=== PATIENT | male | born 1990 | race Caucasian/White ===

== ENCOUNTER 2016-12-14 18:00 | Emergency (ER) | payer BC, OTHER ==
--- NOTE | 2016-12-14 19:22 | EDM.PDOC ---
ED HPI GENERAL MEDICAL PROBLEM - General Chief Complaint: General Stated Complaint: FACE SWELLING Time Seen by Provider: 12/14/16 19:14 - History of Present Illness INITIAL COMMENTS - FREE TEXT/NARRATIVE: HISTORY AND PHYSICAL: History of present illness: Patient 26-year-old white male presents with concern of dental pain and right jaw swelling he's been on amoxicillin x6 days he is going to followup on Thursday he did see the dentist originally put on the amoxicillin had no fever chills nausea vomiting or other complaints. He states he has been compliant with his medications he denies any allergies Review of systems: As per history of present illness and below otherwise all systems reviewed and negative. Past medical history: As per history of present illness and as reviewed below otherwise noncontributory. Surgical history: As per history of present illness and as reviewed below otherwise noncontributory. Social history: No reported history of drug or alcohol abuse. Family history: As per history of present illness and as reviewed below otherwise noncontributory. Physical exam: HEENT: Atraumatic, normocephalic, pupils reactive, negative for conjunctival pallor or scleral icterus, mucous membranes moist, throat clear, neck supple, nontender, trachea midline. Right mandibular swelling patient does have multiple dental caries and does have gingival edema in the region of the right lower molars. Lungs: Clear to auscultation, breath sounds equal bilaterally, chest nontender. Heart: S1S2, regular, negative for clicks, rubs, or JVD. Abdomen: Soft, nondistended, nontender. Negative for masses or hepatosplenomegaly. Negative for costovertebral tenderness. Pelvis: Stable nontender. Genitourinary: Deferred. Rectal: Deferred. Extremities: Atraumatic, negative for cords or calf pain. Neurovascular unremarkable. Neuro: Awake, alert, oriented. Cranial nerves II through XII unremarkable. Cerebellum unremarkable. Motor and sensory unremarkable throughout. Exam nonfocal. Diagnostics: None Therapeutics: None Impression: #1 dentalgia #2 dental abscess Definitive disposition and diagnosis as appropriate pending reevaluation and review of above. Tooth/Teeth Pain Score (Numeric/FACES): 4 - Related Data Allergies Allergy/AdvReac Type Severity Reaction Status Date / Time No Known Allergies Allergy Verified 12/14/16 18:22 Home Meds: Home Meds Amoxicillin 500 mg PO TID 12/14/16 [History] Hydrocodone/Acetaminophen [Hydrocodon-Acetaminophen 5-325] 1 tab PO TID PRN [History] Past Medical History - Past Health History Medical/Surgical History: Denies Medical/Surgical History HEENT History: Reports: None Cardiovascular History: Reports: None Respiratory History: Reports: None Gastrointestinal History: Reports: None Genitourinary History: Reports: None Musculoskeletal History: Reports: Other (see below) Other Musculoskeletal History: multiple broken bones Neurological History: Reports: None Psychiatric History: Reports: None Endocrine/Metabolic History: Reports: None Hematologic History: Reports: None Immunologic History: Reports: None Oncologic (Cancer) History: Reports: None Dermatologic History: Reports: None - Infectious Disease History Infectious Disease History: Reports: Chicken pox - Past Surgical History Head Surgeries/Procedures: Reports: None HEENT Surgical History: Reports: Tonsillectomy Social & Family History - Family History Family Medical History: Noncontributory Cardiac: Reports: Aneurysm - Tobacco Use Smoking Status *Q: Current Every Day Smoker Years of Tobacco use: 12 Packs/Tins Daily: 1.5 Used Tobacco, but Quit: No - Caffeine Use Caffeine Use: Reports: Energy drinks Caffeine Use Comment: 2/day - Recreational Drug Use Recreational Drug Use: No - Living Situation & Occupation Living situation: Reports: (3 children) Occupation: employed ED ROS GENERAL - Review of Systems Review Of Systems: ROS reveals no pertinent complaints other than HPI. ED EXAM, GENERAL - Physical Exam Exam: See Below (The dictation) Course - Vital Signs Last Recorded V/S: Last Vital Signs Temp Pulse 106 H 12/14/16 18:23 Resp 16 12/14/16 18:23 BP 122/64 12/14/16 18:23 Pulse Ox 95 12/14/16 18:23 Departure - Departure Time of Disposition: 19:20 Disposition: Home, Self-Care 01 Condition: good Clinical Impression: Dentalgia, Dental abscess Forms: ED Department Discharge Additional Instructions: The following information is given to patients seen in the emergency department who are being discharged to home. This information is to outline your options for follow-up care. We provide all patients seen in our emergency department with a follow-up referral. The need for follow-up, as well as the timing and circumstances, are variable depending upon the specifics of your emergency department visit. If you don't have a primary care physician on staff, we will provide you with a referral. We always advise you to contact your personal physician following an emergency department visit to inform them of the circumstance of the visit and for follow-up with them and/or the need for any referrals to a consulting specialist. The emergency department will also refer you to a specialist when appropriate. This referral assures that you have the opportunity for followup care with a specialist. All of these measure are taken in an effort to provide you with optimal care, which includes your followup. Under all circumstances we always encourage you to contact your private physician who remains a resource for coordinating your care. When calling for followup care, please make the office aware that this follow-up is from your recent emergency room visit. If for any reason you are refused follow-up, please contact the [facility] emergency department at and asked to speak to the emergency department charge nurse. Clindamycin as prescribed continue hydrocodone and amoxicillin as prescribed followup dentist as scheduled return as needed as discussed
[2016-12-14 19:51] VITALS: BP 135/64
== END 2016-12-14 19:50 | disposition home or self-care (01) ==
LOC: MW.ED 18:00
DX: K04.7 Periapical abscess without sinus (principal); F17.210 Nicotine dependence, cigarettes, uncomplicated; Z98.890 Other specified postprocedural states
CPT/HCPCS: 99282; 99283

== ENCOUNTER 2017-01-09 17:01 | Emergency (ER) | payer OTHER ==
--- NOTE | 2017-01-09 17:41 | EDM.PDOC ---
ED HPI GENERAL MEDICAL PROBLEM - General Chief Complaint: General Stated Complaint: NECK Time Seen by Provider: 01/09/17 17:28 - History of Present Illness INITIAL COMMENTS - FREE TEXT/NARRATIVE: HISTORY AND PHYSICAL: History of present illness: Patient is a 26-year-old male she concern of sore throat right lower back pain generalized weakness and tactile fever and chills over last several days he had no vomiting no diarrhea no urinary symptoms no cough or other complaints. Review of systems: As per history of present illness and below otherwise all systems reviewed and negative. Past medical history: As per history of present illness and as reviewed below otherwise noncontributory. Surgical history: As per history of present illness and as reviewed below otherwise noncontributory. Social history: No reported history of drug or alcohol abuse. Family history: As per history of present illness and as reviewed below otherwise noncontributory. Physical exam: HEENT: Atraumatic, normocephalic, pupils reactive, negative for conjunctival pallor or scleral icterus, mucous membranes dry, throat injected, neck supple, nontender, trachea midline. Lungs: Clear to auscultation, breath sounds equal bilaterally, chest nontender. Heart: S1S2, regular, negative for clicks, rubs, or JVD. Abdomen: Soft, nondistended, nontender. Negative for masses or hepatosplenomegaly. Negative for costovertebral tenderness. Pelvis: Stable nontender. Genitourinary: Deferred. Rectal: Deferred. Extremities: Atraumatic, negative for cords or calf pain. Neurovascular unremarkable. Neuro: Awake, alert, oriented. Cranial nerves II through XII unremarkable. Cerebellum unremarkable. Motor and sensory unremarkable throughout. Exam nonfocal. Diagnostics: CBC CMP UA rapid strep chest x-ray Therapeutics: Normal saline 1 L bolus Impression: #1 pharyngitis #2 dehydration #3 low back pain Definitive disposition and diagnosis as appropriate pending reevaluation and review of above. Oral/Mouth Pain Score (Numeric/FACES): 4 - Related Data Allergies Allergy/AdvReac Type Severity Reaction Status Date / Time No Known Allergies Allergy Verified 01/09/17 17:05 Past Medical History - Past Health History Medical/Surgical History: Denies Medical/Surgical History HEENT History: Reports: None Cardiovascular History: Reports: None Respiratory History: Reports: None Gastrointestinal History: Reports: None Genitourinary History: Reports: None Musculoskeletal History: Reports: Other (See Below) Other Musculoskeletal History: multiple broken bones Neurological History: Reports: None Psychiatric History: Reports: None Endocrine/Metabolic History: Reports: None Hematologic History: Reports: None Immunologic History: Reports: None Oncologic (Cancer) History: Reports: None Dermatologic History: Reports: None - Infectious Disease History Infectious Disease History: Reports: Chicken Pox - Past Surgical History Head Surgeries/Procedures: Reports: None HEENT Surgical History: Reports: Tonsillectomy Social & Family History - Family History Family Medical History: Noncontributory Cardiac: Reports: Aneurysm - Tobacco Use Smoking Status *Q: Current Every Day Smoker Years of Tobacco use: 18 Packs/Tins Daily: 1 Used Tobacco, but Quit: No - Caffeine Use Caffeine Use: Reports: Coffee Caffeine Use Comment: 2/day - Recreational Drug Use Recreational Drug Use: No - Living Situation & Occupation Living situation: Reports: Occupation: Employed ED ROS GENERAL - Review of Systems Review Of Systems: ROS reveals no pertinent complaints other than HPI. ED EXAM, GENERAL - Physical Exam Exam: See Below (See dictation) Course - Vital Signs Last Recorded V/S: Last Vital Signs Temp 37.2 C 01/09/17 17:06 Pulse 112 H 01/09/17 17:06 Resp 16 01/09/17 17:06 BP 119/67 01/09/17 17:06 Pulse Ox - Orders/Labs/Meds Orders: Active Orders 24 hr Category Date Time Status Chest 2V [CR] Stat Exams 01/09/17 17:42 Taken CULTURE STREP A CONFIRMATION [RM] Stat Lab 01/09/17 17:50 Results STREP SCRN A RAPID W CULT CONF [RM] Stat Lab 01/09/17 17:50 Results Labs: Laboratory Tests 01/09/17 01/09/17 01/09/17 Range/Units 17:45 17:48 17:48 WBC 15.18 H (4.0-11.0) K/uL RBC 4.39 L (4.50-5.90) M/uL Hgb 13.8 (13.0-17.0) g/dL Hct 39.7 (38.0-50.0) % MCV 90.4 (80.0-98.0) fL MCH 31.4 (27.0-32.0) pg MCHC 34.8 (31.0-37.0) g/dL RDW Std Deviation 46.2 (28.0-62.0) fl RDW Coeff of Mirna 14 (11.0-15.0) % Plt Count 265 (150-400) K/uL MPV 9.50 (7.40-12.00) fL Add Manual Diff YES Neutrophils % (Manual) 54 (48.0-80.0) % Band Neutrophils % 10 % Lymphocytes % (Manual) 26 (16.0-40.0) % Monocytes % (Manual) 10 (0.0-15.0) % Nucleated RBC % 0.0 /100WBC Absolute Seg Neuts 8.2 Band Neutrophils # 1.5 Lymphocytes # (Manual) 3.9 Monocytes # (Manual) 1.5 Nucleated RBCs # 0 K/uL Reactive Lymphocytes FEW Sodium 137 (136-146) mmol/L Potassium 4.3 (3.5-5.1) mmol/L Chloride 102 (98-110) mmol/L Carbon Dioxide 23 (21-31) mmol/L BUN 8 (6.0-23.0) mg/dL Creatinine 1.0 (0.6-1.5) mg/dL Est Cr Clr Drug Dosing 98.78 mL/min Estimated GFR (MDRD) > 60.0 ml/min Glucose 94 (60-110) mg/dL Calcium 9.9 (8.8-10.8) mg/dL Total Bilirubin 0.7 (0.1-1.5) mg/dL AST 15 (5-40) IU/L ALT 14 (8-54) IU/L Alkaline Phosphatase 44 (40-150) Total Protein 8.1 H (6.0-8.0) g/dL Albumin 4.6 (3.5-5.0) g/dL Globulin 3.5 (2.0-3.5) g/dL Albumin/Globulin Ratio 1.3 (1.3-2.8) Urine Color YELLOW Urine Appearance CLEAR Urine pH 6.0 (5.0-8.0) Ur Specific Lillian 1.020 (1.001-1.035) Urine Protein TRACE (NEGATIVE) mg/dL Urine Glucose (UA) NEGATIVE (NEGATIVE) mg/dL Urine Ketones 15 H (NEGATIVE) mg/dL Urine Occult Blood NEGATIVE (NEGATIVE) Urine Nitrite NEGATIVE (NEGATIVE) Urine Bilirubin MODERATE H (NEGATIVE) Urine Ictotest NEGATIVE Urine Urobilinogen 1.0 (<2.0) EU/dL Ur Leukocyte Esterase NEGATIVE (NEGATIVE) Urine RBC 1-2 (0-2/HPF) Urine WBC 2-7 (0-5/HPF) Ur Epithelial Cells OCCASIONAL (NONE-FEW) Urine Bacteria FEW (NEGATIVE) Urine Mucus MODERATE (NONE-MOD) Meds: Medications Discontinued Medications Generic Name Dose Route Start Last Admin Trade Name Sara PRN Reason Stop Dose Admin Sodium Chloride 1,000 mls @ 999 mls/hr 01/09/17 17:42 01/09/17 17:55 Normal Saline IV 01/09/17 18:42 999 mls/hr STAT ONE Administration Departure - Departure Time of Disposition: 18:51 Disposition: Home, Self-Care 01 Condition: good Clinical Impression: Dehydration, Encounter for medical screening examination - Discharge Information Referrals: PCP,None [Primary Care Provider] - Forms: ED Department Discharge Additional Instructions: The following information is given to patients seen in the emergency department who are being discharged to home. This information is to outline your options for follow-up care. We provide all patients seen in our emergency department with a follow-up referral. The need for follow-up, as well as the timing and circumstances, are variable depending upon the specifics of your emergency department visit. If you don't have a primary care physician on staff, we will provide you with a referral. We always advise you to contact your personal physician following an emergency department visit to inform them of the circumstance of the visit and for follow-up with them and/or the need for any referrals to a consulting specialist. The emergency department will also refer you to a specialist when appropriate. This referral assures that you have the opportunity for followup care with a specialist. All of these measure are taken in an effort to provide you with optimal care, which includes your followup. Under all circumstances we always encourage you to contact your private physician who remains a resource for coordinating your care. When calling for followup care, please make the office aware that this follow-up is from your recent emergency room visit. If for any reason you are refused follow-up, please contact the [facility] emergency department at and asked to speak to the emergency department charge nurse. Motrin/Tylenol as directed push fluids follow up primary medical doctor one to 2 days return as needed as discussed - My Orders Last 24 Hours: My Active Orders 01/09/17 17:42 Chest 2V [CR] Stat 01/09/17 17:50 CULTURE STREP A CONFIRMATION [RM] Stat STREP SCRN A RAPID W CULT CONF [RM] Stat - Assessment/Plan Last 24 Hours: My Active Orders 01/09/17 17:42 Chest 2V [CR] Stat 01/09/17 17:50 CULTURE STREP A CONFIRMATION [RM] Stat STREP SCRN A RAPID W CULT CONF [RM] Stat
[2017-01-09] MEDS ORDERED: Sodium Chloride 0.9% 1,000 ML IV ONE (17:42)
[2017-01-09 18:24] LABS: CHLORIDE,CL 102 mmol/L (98-110); SODIUM,NA 137 mmol/L (136-146)
[2017-01-09] MEDS ORDERED: cefTRIAXone 1 GM in Premix Bag 1 BAG IV ONE (19:00)
[2017-01-10 02:29] VITALS: BP 96/55
--- NOTE | 2017-01-13 10:10 | CR ---
EXAM DATE: 01/09/17 PATIENT'S AGE: 26 Patient: PRAVEEN LARA Facility: [place], [place] Site . Site : 1990 Study: XRay Chest [id number] 6:35:54 PM Ordering Physician: Smooth Ku Final Report: INDICATION: Fever TECHNIQUE: Chest 2 views. COMPARISON: None available FINDINGS: Cardiovascular and mediastinum: Heart size and vasculature are normal in caliber and appearance. Mediastinum is within normal limits. Lungs and pleural spaces: No consolidation or pleural effusions. An apparent small nodular opacity in the left upper lung projecting over the anterior 2nd rib which could represent a small granuloma. Bones and soft tissues: A mild chronic deformity of the distal right clavicle. IMPRESSION: No sign of acute disease. An apparent small left upper lobe nodular opacity could represent a small granuloma. Recommend followup. Dictated by Damion Almanza MD @ 01/09/2017 7:20:06 PM Dictated by: Damion Almanza MD @ 01/09/2017 19:20:09 (Electronic Signature) Report Signed by Proxy. [facility] CENTERMalini
== END 2017-01-09 19:46 | disposition home or self-care (01) ==
LOC: MW.ED 17:01
DX: J02.9 Acute pharyngitis, unspecified (principal); E86.0 Dehydration; M54.5 Low back pain; Z13.9 Encounter for screening, unspecified; F17.210 Nicotine dependence, cigarettes, uncomplicated; Z90.89 Acquired absence of other organs
CPT/HCPCS: 71020; 80053; 81001; 85025; 87081; 87880; 96361; 96365; 99283; J0696; J7040; 99284

== ENCOUNTER 2019-06-08 13:32 | Emergency (ER) | payer OTHER ==
--- NOTE | 2019-06-08 13:56 | EDM.PDOC ---
ED HPI GENERAL MEDICAL PROBLEM - General Chief Complaint: Respiratory Problem Stated Complaint: UNKNOWN Time Seen by Provider: 06/08/19 13:56 Source of Information: Reports: Patient History Limitations: Reports: No Limitations - History of Present Illness INITIAL COMMENTS - FREE TEXT/NARRATIVE: HISTORY AND PHYSICAL: History of present illness: Patient is a 29-year-old male presents to the ED With complaint of cough and congestion x 3 days. He states he has had sinus and nasal congestion, headache, and cough. Denies fevers,chills, nausea ,vomiting, abdominal pain. Denies significant past medical history. Smokes 2 ppd x 15 years. Review of systems: As per history of present illness and below otherwise all systems reviewed and negative. Past medical history: As per history of present illness and as reviewed below otherwise noncontributory. Surgical history: As per history of present illness and as reviewed below otherwise noncontributory. Social history: No reported history of drug or alcohol abuse. Family history: As per history of present illness and as reviewed below otherwise noncontributory. Physical exam: General: Patient sitting comfortably in no acute distress and nontoxic appearing HEENT: Atraumatic, normocephalic, pupils reactive, negative for conjunctival pallor or scleral icterus, mucous membranes moist, throat clear, neck supple, nontender, trachea midline. No meningeal signs. Lungs: Clear to auscultation, breath sounds equal bilaterally, chest nontender. Heart: S1S2, regular, negative for clicks, rubs, or overt murmur. Abdomen: Soft, nondistended, nontender. Negative for masses or hepatosplenomegaly. Negative for costovertebral tenderness. No rigidity, rebound , guarding. Pelvis: Stable nontender. Genitourinary: Deferred. Rectal: Deferred. Extremities: Atraumatic, negative for cords or calf pain. Neurovascular unremarkable. Neuro: Awake, alert, oriented. Cranial nerves II through XII unremarkable. Cerebellum unremarkable. Motor and sensory unremarkable throughout. Exam nonfocal. Notes: Diagnostics: Influenza, CXR Therapeutics: [] Prescriptions: Azithromycin Chest x-ray Impression: Acute bronchitis Plan: Take antibiotic and inhaler as instructed Follow up with primary care provider Return to ED as needed as discussed Definitive disposition and diagnosis as appropriate pending reevaluation and review of above. right ear Pain Score (Numeric/FACES): 2 - Related Data Allergies Allergy/AdvReac Type Severity Reaction Status Date / Time No Known Allergies Allergy Verified 06/08/19 13:48 Home Meds: Home Meds Albuterol [Ventolin HFA] 1 puff INH Q4H #1 inhaler 06/08/19 [Rx] Azithromycin [Zithromax] 250 mg PO ASDIRECTED #1 dosepk 06/08/19 [Rx] Past Medical History - Past Health History Medical/Surgical History: Denies Medical/Surgical History HEENT History: Reports: None Cardiovascular History: Reports: None Respiratory History: Reports: None Gastrointestinal History: Reports: None Genitourinary History: Reports: None Musculoskeletal History: Reports: Other (See Below) Other Musculoskeletal History: multiple broken bones Neurological History: Reports: None Psychiatric History: Reports: None Endocrine/Metabolic History: Reports: None Hematologic History: Reports: None Immunologic History: Reports: None Oncologic (Cancer) History: Reports: None Dermatologic History: Reports: None - Infectious Disease History Infectious Disease History: Reports: Chicken Pox - Past Surgical History Head Surgeries/Procedures: Reports: None HEENT Surgical History: Reports: Tonsillectomy Social & Family History - Family History Family Medical History: Noncontributory Cardiac: Reports: Aneurysm - Tobacco Use Smoking Status *Q: Current Every Day Smoker Years of Tobacco use: 16 Packs/Tins Daily: 2 - Caffeine Use Caffeine Use: Reports: Coffee Caffeine Use Comment: 2/day - Recreational Drug Use Recreational Drug Use: No - Living Situation & Occupation Living situation: Reports: Occupation: Employed ED ROS GENERAL - Review of Systems Review Of Systems: ROS reveals no pertinent complaints other than HPI. ED EXAM, GENERAL - Physical Exam Exam: See Below (see dictation) Course - Vital Signs Last Recorded V/S: Last Vital Signs Temp 97.5 F 06/08/19 13:48 Pulse 97 06/08/19 15:11 Resp 18 06/08/19 15:11 BP 122/78 06/08/19 15:11 Pulse Ox 98 06/08/19 15:11 Departure - Departure Time of Disposition: 14:51 Disposition: Home, Self-Care 01 Condition: Good Clinical Impression: Acute bronchitis - Discharge Information Prescriptions: Albuterol [Ventolin HFA] 1 puff INH Q4H #1 inhaler Azithromycin [Zithromax] 250 mg PO ASDIRECTED #1 dosepk Instructions: Acute Bronchitis, Adult, [id number] Referrals: PCP,None [Primary Care Provider] - Forms: ED Department Discharge Additional Instructions: The following information is given to patients seen in the emergency department who are being discharged to home. This information is to outline your options for follow-up care. We provide all patients seen in our emergency department with a follow-up referral. The need for follow-up, as well as the timing and circumstances, are variable depending upon the specifics of your emergency department visit. If you don't have a primary care physician on staff, we will provide you with a referral. We always advise you to contact your personal physician following an emergency department visit to inform them of the circumstance of the visit and for follow-up with them and/or the need for any referrals to a consulting specialist. The emergency department will also refer you to a specialist when appropriate. This referral assures that you have the opportunity for follow-up care with a specialist. All of these measure are taken in an effort to provide you with optimal care, which includes your follow-up. Under all circumstances we always encourage you to contact your private physician who remains a resource for coordinating your care. When calling for follow-up care, please make the office aware that this follow-up is from your recent emergency room visit. If for any reason you are refused follow-up, please contact the [facility] Emergency Department at and asked to speak to the emergency department charge nurse. [facility] [address] [place] [id number] [facility] [address] [place] [id number] Take antibiotic and inhaler as instructed Follow up with primary care provider Return to ED as needed as discussed
[2019-06-08 15:11] VITALS: BP 122/78; PULSE 97
--- NOTE | 2019-06-08 15:21 | CR ---
Indication: Chest pain, shortness of breath Technique: Chest 1 view. Comparison: January 09, 2017 Findings: Cardiovascular and mediastinum: Heart size and vasculature are normal in caliber and appearance. Mediastinum is within normal limits. Lungs and pleural space: Lungs are clear. No sign of infiltrate or mass. No sign of pleural effusion. No pneumothorax. Bones and soft tissues: No significant findings. Impression: No sign of acute disease. Dictated by Mariela Darling MD @ Jun 08 2019 3:17PM Signed by Dr. Mariela Darling @ Jun 08 2019 3:18PM
== END 2019-06-08 15:09 | disposition home or self-care (01) ==
LOC: MW.ED 13:32
DX: J20.9 Acute bronchitis, unspecified (principal); F17.210 Nicotine dependence, cigarettes, uncomplicated
CPT/HCPCS: 71045; 71045-26; 87804; 99283-25

== ENCOUNTER 2019-06-30 13:08 | Emergency (ER) | payer OTHER ==
[2019-06-30] MEDS ORDERED: methylPREDNISolone Sodium Succinate 125 MG/2 ML SDV IM ONE (13:56)
[2019-06-30] MEDS ORDERED: Albuterol/Ipratropium 3.0-0.5 MG/3 ML Neb Soln NEB ONE (13:56)
[2019-06-30] MEDS ORDERED: methylPREDNISolone Sodium Succinate 125 MG/2 ML SDV IVPUSH ONE (14:28)
--- NOTE | 2019-06-30 14:54 | EDM.PDOC ---
ED HPI GENERAL MEDICAL PROBLEM - General Chief Complaint: Respiratory Problem Stated Complaint: COUGH, SOB Time Seen by Provider: 06/30/19 13:32 Source of Information: Reports: Patient History Limitations: Reports: No Limitations - History of Present Illness INITIAL COMMENTS - FREE TEXT/NARRATIVE: HISTORY AND PHYSICAL: History of present illness: Patient is a 29-year-old male who presents to the ED today with concern of cough and feeling short of breath over the last month and a half. Patient states he was seen here in the ED approximately a month and a half ago and was given antibiotics and an inhaler for bronchitis according the patient. Patient states he took the medication and did not have improvement of his symptoms. Patient states the symptoms have been ongoing since that visit and have not worsened but also had not gotten better. Patient states he used to smoke 2 packs of cigarettes a day for many years but since the onset of the symptoms has decreased to half a pack a day. Patient denies any health history or any other symptoms or concerns. Patient denies fever, chills, chest pain. Denies headache, neck stiff ness, change in vision, syncope, or near syncope. Denies nausea, vomiting, abdominal pain, diarrhea, constipation, or dysuria. Has not noted any blood in urine or stool. Patient has been eating and drinking appropriately. Review of systems: As per history of present illness and below otherwise all systems reviewed and negative. Past medical history: As per history of present illness and as reviewed below otherwise noncontributory. Surgical history: As per history of present illness and as reviewed below otherwise noncontributory. Social history: See social history for further information Family history: As per history of present illness and as reviewed below otherwise noncontributory. Physical exam: General: Patient is alert, oriented, and in no acute distress. Patient sitting comfortably on exam table. HEENT: Atraumatic, normocephalic, pupils equal and reactive bilaterally, negative for conjunctival pallor or scleral icterus, mucous membranes moist, TMs normal bilaterally, throat clear, neck supple, nontender, trachea midline. No drooling or trismus noted. No meningeal signs. No hot potato voice noted. Lungs: Clear to auscultation, breath sounds equal bilaterally, chest nontender. Heart: S1S2, regular rate and rhythm without overt murmur Abdomen: Soft, nondistended, nontender. Negative for masses or hepatosplenomegaly. Negative for costovertebral tenderness. Pelvis: Stable nontender. Genitourinary: Deferred. Rectal: Deferred. Skin: Intact, warm, dry. No lesions or rashes noted. Extremities: Atraumatic, negative for cords or calf pain. Neurovascular unremarkable. Neuro: Awake, alert, oriented. Cranial nerves II through XII unremarkable. Cerebellum unremarkable. Motor and sensory unremarkable throughout. Exam nonfocal. Notes: Discussed the importance for follow-up with a primary care provider. Voices understanding and is agreeable to plan of care. Denies any further questions or concerns at this time. Diagnostics: Influenza, strep, CBC, CMP, UA, EKG, chest x-ray Therapeutics: DuoNeb, Solu-Medrol Prescription: Medrol dose pack, proair inhaler Impression: Cough Dyspnea Plan: 1. Take medication as prescribed. You can alternate abdomen and Tylenol as directed for pain and discomfort. 2. Follow-up with your primary care provider as discussed. Return to the ED as needed and as discussed. Definitive disposition and diagnosis as appropriate pending reevaluation and review of above. bodyaches Pain Score (Numeric/FACES): 3 - Related Data Allergies Allergy/AdvReac Type Severity Reaction Status Date / Time No Known Allergies Allergy Verified 06/30/19 13:29 Home Meds: Home Meds Albuterol [Ventolin HFA] 1 puff INH Q4H #1 inhaler 06/08/19 [Rx] Past Medical History - Past Health History Medical/Surgical History: Denies Medical/Surgical History HEENT History: Reports: None Cardiovascular History: Reports: None Respiratory History: Reports: None Gastrointestinal History: Reports: None Genitourinary History: Reports: None Musculoskeletal History: Reports: Other (See Below) Other Musculoskeletal History: multiple broken bones Neurological History: Reports: None Psychiatric History: Reports: None Endocrine/Metabolic History: Reports: None Hematologic History: Reports: None Immunologic History: Reports: None Oncologic (Cancer) History: Reports: None Dermatologic History: Reports: None - Infectious Disease History Infectious Disease History: Reports: Chicken Pox - Past Surgical History Head Surgeries/Procedures: Reports: None HEENT Surgical History: Reports: Tonsillectomy Social & Family History - Family History Family Medical History: Noncontributory Cardiac: Reports: Aneurysm - Tobacco Use Smoking Status *Q: Current Every Day Smoker Years of Tobacco use: 18 Packs/Tins Daily: 2 - Caffeine Use Caffeine Use: Reports: Coffee Caffeine Use Comment: 2/day - Recreational Drug Use Recreational Drug Use: No - Living Situation & Occupation Living situation: Reports: Occupation: Employed ED ROS GENERAL - Review of Systems Review Of Systems: Comprehensive ROS is negative, except as noted in HPI. ED EXAM, GENERAL - Physical Exam Exam: See Below (See dictation) Course - Vital Signs Last Recorded V/S: Last Vital Signs Temp 97.7 F 06/30/19 15:17 Pulse 90 06/30/19 15:17 Resp 16 06/30/19 15:17 BP 108/70 06/30/19 15:17 Pulse Ox 98 06/30/19 15:17 - Orders/Labs/Meds Orders: Active Orders 24 hr Category Date Time Status EKG Documentation Completion [RC] STAT Care 06/30/19 13:55 Active RT Aerosol Therapy [RC] ASDIRECTED Care 06/30/19 13:56 Active CULTURE STREP A CONFIRMATION [] Stat Lab 06/30/19 14:47 Results STREP SCRN A RAPID W CULT CONF [RM] Stat Lab 06/30/19 14:47 Results Labs: Laboratory Tests 06/30/19 06/30/19 06/30/19 Range/Units 14:35 14:35 14:43 WBC 13.03 H (4.0-11.0) K/uL RBC 4.74 (4.50-5.90) M/uL Hgb 15.3 (13.0-17.0) g/dL Hct 44.1 (38.0-50.0) % MCV 93.0 (80.0-98.0) fL MCH 32.3 H (27.0-32.0) pg MCHC 34.7 (31.0-37.0) g/dL RDW Std Deviation 47.9 (28.0-62.0) fl RDW Coeff of Mirna 14 (11.0-15.0) % Plt Count 317 (150-400) K/uL MPV 9.90 (7.40-12.00) fL Neut % (Auto) 58.7 (48.0-80.0) % Lymph % (Auto) 29.9 (16.0-40.0) % [place] % (Auto) 9.7 (0.0-15.0) % Eos % (Auto) 1.5 (0.0-7.0) % Baso % (Auto) 0.2 (0.0-1.5) % Neut # (Auto) 7.7 H (1.4-5.7) K/uL Lymph # (Auto) 3.9 H (0.6-2.4) K/uL [place] # (Auto) 1.3 H (0.0-0.8) K/uL Eos # (Auto) 0.2 (0.0-0.7) K/uL Baso # (Auto) 0.0 (0.0-0.1) K/uL Nucleated RBC % 0.0 /100WBC Nucleated RBCs # 0 K/uL Sodium 139 (136-148) mmol/L Potassium 4.0 (3.5-5.1) mmol/L Chloride 104 (98-107) mmol/L Carbon Dioxide 26.8 (21.0-32.0) mmol/L BUN 9 (7.0-18.0) mg/dL Creatinine 1.0 (0.8-1.3) mg/dL Est Cr Clr Drug Dosing 109.87 mL/min Estimated GFR (MDRD) > 60.0 ml/min Glucose 89 (74-106) mg/dL Calcium 9.3 (8.5-10.1) mg/dL Total Bilirubin 0.6 (0.2-1.0) mg/dL AST 26 (15-37) IU/L ALT 37 (14-63) IU/L Alkaline Phosphatase 47 (46-116) U/L Total Protein 8.3 H (6.4-8.2) g/dL Albumin 4.4 (3.4-5.0) g/dL Globulin 3.9 (2.6-4.0) g/dL Albumin/Globulin Ratio 1.1 (0.9-1.6) Urine Color YELLOW Urine Appearance CLEAR Urine pH 7.0 (5.0-8.0) Ur Specific [place] 1.020 (1.001-1.035) Urine Protein NEGATIVE (NEGATIVE) mg/dL Urine Glucose (UA) NEGATIVE (NEGATIVE) mg/dL Urine Ketones NEGATIVE (NEGATIVE) mg/dL Urine Occult Blood NEGATIVE (NEGATIVE) Urine Nitrite NEGATIVE (NEGATIVE) Urine Bilirubin NEGATIVE (NEGATIVE) Urine Urobilinogen 0.2 (<2.0) EU/dL Ur Leukocyte Esterase NEGATIVE (NEGATIVE) Meds: Medications Discontinued Medications Generic Name Dose Route Start Last Admin Trade Name Sara PRN Reason Stop Dose Admin Albuterol/Ipratropium 3 ml 06/30/19 13:56 06/30/19 14:29 Duoneb 3.0-0.5 Mg/3 Ml NEB 06/30/19 13:57 3 ml ONETIME ONE Administration Methylprednisolone Sodium Succinate 125 mg 06/30/19 14:28 06/30/19 14:29 Solu-Medrol IVPUSH 06/30/19 14:29 125 mg ONETIME ONE Administration Departure - Departure Time of Disposition: 15:44 Disposition: Home, Self-Care 01 Clinical Impression: Cough Dyspnea Qualifiers: Dyspnea type: unspecified Qualified Code(s): R06.00 - Dyspnea, unspecified - Discharge Information Referrals: PCP,None [Primary Care Provider] - Forms: ED Department Discharge Additional Instructions: The following information is given to patients seen in the emergency department who are being discharged to home. This information is to outline your options for follow-up care. We provide all patients seen in our emergency department with a follow-up referral. The need for follow-up, as well as the timing and circumstances, are variable depending upon the specifics of your emergency department visit. If you don't have a primary care physician on staff, we will provide you with a referral. We always advise you to contact your personal physician following an emergency department visit to inform them of the circumstance of the visit and for follow-up with them and/or the need for any referrals to a consulting specialist. The emergency department will also refer you to a specialist when appropriate. This referral assures that you have the opportunity for follow-up care with a specialist. All of these measure are taken in an effort to provide you with optimal care, which includes your follow-up. Under all circumstances we always encourage you to contact your private physician who remains a resource for coordinating your care. When calling for follow-up care, please make the office aware that this follow-up is from your recent emergency room visit. If for any reason you are refused follow-up, please contact the [facility] Emergency Department at and asked to speak to the emergency department charge nurse. [facility] [address] [place] [address] [facility] [address] [place] [address] 1. Take medication as prescribed. You can alternate abdomen and Tylenol as directed for pain and discomfort. 2. Follow-up with your primary care provider as discussed. Return to the ED as needed and as discussed. - My Orders Last 24 Hours: My Active Orders 06/30/19 13:55 EKG Documentation Completion [RC] STAT 06/30/19 13:56 RT Aerosol Therapy [RC] ASDIRECTED 06/30/19 14:47 CULTURE STREP A CONFIRMATION [RM] Stat STREP SCRN A RAPID W CULT CONF [RM] Stat - Assessment/Plan Last 24 Hours: My Active Orders 06/30/19 13:55 EKG Documentation Completion [RC] STAT 06/30/19 13:56 RT Aerosol Therapy [RC] ASDIRECTED 06/30/19 14:47 CULTURE STREP A CONFIRMATION [RM] Stat STREP SCRN A RAPID W CULT CONF [RM] Stat
[2019-06-30 15:16] LABS: BLOOD UREA NITROGEN,BUN 9 mg/dL (7.0-18.0); CARBON DIOXIDE,CO2 26.8 mmol/L (21.0-32.0); CHLORIDE,CL 104 mmol/L (98-107); GLUCOSE RANDOM 89 mg/dL (74-106); SODIUM,NA 139 mmol/L (136-148)
--- NOTE | 2019-06-30 15:35 | CR ---
EXAM DATE: 06/30/19 PATIENT'S AGE: 29 Chest: Two views of the chest were obtained. Comparison: Prior chest x-ray of 06/08/19. Heart size and mediastinum are normal. Lungs are clear. Bony structures are unremarkable for the patient's age. Impression: 1. Nothing acute is seen on two view chest x-ray. 2. No appreciable change is seen from previous study. Diagnostic code #1 Report Signed by Proxy. JC
[2019-06-30 16:08] VITALS: BP 115/65; PULSE 69
== END 2019-06-30 16:08 | disposition home or self-care (01) ==
LOC: MW.ED 13:08
DX: R06.00 Dyspnea, unspecified (principal); F17.210 Nicotine dependence, cigarettes, uncomplicated
CPT/HCPCS: 36415; 71046; 80053; 81003; 85025; 87081; 87804; 87880; 93005; 94640; 96374; 99285; J2930; 99283; J7620-GY

== ENCOUNTER 2019-09-30 10:14 | Emergency (ER) | payer OTHER ==
[2019-09-30 11:12] LABS: BLOOD UREA NITROGEN,BUN 10 mg/dL (7.0-18.0); CARBON DIOXIDE,CO2 28.3 mmol/L (21.0-32.0); CHLORIDE,CL 103 mmol/L (98-107); GLUCOSE RANDOM 90 mg/dL (74-106); POTASSIUM,K 4.1 mmol/L (3.5-5.1); SODIUM,NA 139 mmol/L (136-148)
--- NOTE | 2019-09-30 11:25 | EDM.PDOC ---
ED HPI GENERAL MEDICAL PROBLEM - General Chief Complaint: Cardiovascular Problem Stated Complaint: CHEST PAIN Time Seen by Provider: 09/30/19 11:10 Source of Information: Reports: Patient, RN Notes Reviewed - History of Present Illness INITIAL COMMENTS - FREE TEXT/NARRATIVE: Patient states that around 9 AM today while seated in his truck, he felt nausea , dizziness, and palpitations. Symptoms were abrupt in onset. Symptoms lasted an hour and a half, then resolved on their own. He said the symptoms began with nausea and feeling lightheaded. He then felt some 1 or 2 out of 10 nonradiating pleuritic chest pain. Nothing made the symptoms better or worse. He states that he does not use drugs. No alcohol today. Says he drinks anywhere from once a month to once a week. He said he drank 3 or 4 beers yesterday. Did not have any alcohol today. Denied suicidal or homicidal ideation. Says he was not particularly anxious at that time. There was no nausea or vomiting. Again, he says his symptoms have resolved; he has no chest pain, palpitations, anxiety, or panic at the time that I am talking to him. Denies fam hx of AMI prior to age 50. - Related Data Allergies Allergy/AdvReac Type Severity Reaction Status Date / Time No Known Allergies Allergy Verified 06/30/19 13:29 Home Meds: Home Meds Melatonin 09/30/19 [History] Past Medical History - Past Health History Medical/Surgical History: Denies Medical/Surgical History HEENT History: Reports: None Cardiovascular History: Reports: None Respiratory History: Reports: None Gastrointestinal History: Reports: None Genitourinary History: Reports: None Musculoskeletal History: Reports: Other (See Below) Other Musculoskeletal History: multiple broken bones Neurological History: Reports: None Psychiatric History: Reports: None Endocrine/Metabolic History: Reports: None Hematologic History: Reports: None Immunologic History: Reports: None Oncologic (Cancer) History: Reports: None Dermatologic History: Reports: None - Infectious Disease History Infectious Disease History: Reports: Chicken Pox - Past Surgical History Head Surgeries/Procedures: Reports: None HEENT Surgical History: Reports: Tonsillectomy Social & Family History - Family History Family Medical History: Noncontributory Cardiac: Reports: Aneurysm - Tobacco Use Smoking Status *Q: Current Every Day Smoker Years of Tobacco use: 20 Packs/Tins Daily: 2 - Caffeine Use Caffeine Use: Reports: Coffee Caffeine Use Comment: 2/day - Recreational Drug Use Recreational Drug Use: No - Living Situation & Occupation Living situation: Reports: Occupation: Employed ED ROS GENERAL - Review of Systems Review Of Systems: See Below Free Text/Narrative/Comment: Review of systems for nausea, dizziness, palpitations. Review of systems negative for, chills, headache, vomiting, syncope, focal weakness, seizure-like activity. ED EXAM, GENERAL - Physical Exam Exam: See Below Free Text/Narrative:: General: alert, well appearing, no acute distress HEENT: Atraumatic, normocephalic, pupils reactive, negative for conjunctival pallor or scleral icterus, mucous membranes moist, throat clear. No exophthalmos. Neck: supple, nontender, trachea midline. No masses. Lungs: Clear to auscultation, breath sounds equal bilaterally, chest nontender. Heart: S1S2, regular, negative for clicks, rubs, or JVD. Abdomen: Soft, nondistended, nontender. Negative for masses or hepatosplenomegaly. Negative for costovertebral tenderness. Pelvis: Stable nontender. Skin: warm, dry, good turgor. Musculoskeletal: soft compartments. Extremities: Atraumatic, negative for cords or calf pain. Neurovascular unremarkable. Neuro: Awake, alert, oriented. Cranial nerves II through XII unremarkable. Cerebellum unremarkable. Motor and sensory unremarkable throughout. Exam nonfocal. Good eye contact. Normal affect; no anxiety. EKG INTERPRETATION EKG Interpretation Comments: Ek bpm nsr nl axis nl pr, qrs, qtc no acute st changes Course - Vital Signs Last Recorded V/S: Last Vital Signs Temp 97.1 F 09/30/19 10:20 Pulse 88 09/30/19 11:38 Resp 18 09/30/19 11:38 BP 107/69 09/30/19 11:38 Pulse Ox 99 09/30/19 11:38 - Orders/Labs/Meds Orders: Active Orders 24 hr Category Date Time Status EKG 12 Lead [EKG Documentation Completion] [RC] STAT Care 09/30/19 10:34 Active Ready for Discharge [RC] PER UNIT ROUTINE Care 09/30/19 12:07 Active Labs: Laboratory Tests 09/30/19 09/30/19 09/30/19 Range/Units 10:22 10:22 10:59 WBC 10.94 (4.0-11.0) K/uL RBC 4.74 (4.50-5.90) M/uL Hgb 15.3 (13.0-17.0) g/dL Hct 43.6 (38.0-50.0) % MCV 92.0 (80.0-98.0) fL MCH 32.3 H (27.0-32.0) pg MCHC 35.1 (31.0-37.0) g/dL RDW Std Deviation 48.8 (28.0-62.0) fl RDW Coeff of Mirna 14 (11.0-15.0) % Plt Count 336 (150-400) K/uL MPV 9.70 (7.40-12.00) fL Add Manual Diff YES Neutrophils % (Manual) 49 (48.0-80.0) % Lymphocytes % (Manual) 41 H (16.0-40.0) % Monocytes % (Manual) 8 (0.0-15.0) % Eosinophils % (Manual) 2 (0.0-7.0) % Nucleated RBC % 0.0 /100WBC Absolute Seg Neuts 5.4 (1.4-5.7) Lymphocytes # (Manual) 4.5 H (0.6-2.4) Monocytes # (Manual) 0.9 H (0.0-0.8) Eosinophils # (Manual) 0.2 (0.0-0.7) Nucleated RBCs # 0 K/uL Sodium 139 (136-148) mmol/L Potassium 4.1 (3.5-5.1) mmol/L Chloride 103 (98-107) mmol/L Carbon Dioxide 28.3 (21.0-32.0) mmol/L BUN 10 (7.0-18.0) mg/dL Creatinine 0.9 (0.8-1.3) mg/dL Est Cr Clr Drug Dosing 126.66 mL/min Estimated GFR (MDRD) > 60.0 ml/min Glucose 90 (74-106) mg/dL Calcium 9.4 (8.5-10.1) mg/dL Total Bilirubin 0.4 (0.2-1.0) mg/dL AST 24 (15-37) IU/L ALT 31 (14-63) IU/L Alkaline Phosphatase 50 (46-116) U/L Troponin I < 0.050 (0.000-0.056) ng/mL Total Protein 8.3 H (6.4-8.2) g/dL Albumin 4.3 (3.4-5.0) g/dL Globulin 4.0 (2.6-4.0) g/dL Albumin/Globulin Ratio 1.1 (0.9-1.6) Urine Color YELLOW Urine Appearance CLEAR Urine pH 7.0 (5.0-8.0) Ur Specific [place] 1.020 (1.001-1.035) Urine Protein NEGATIVE (NEGATIVE) mg/dL Urine Glucose (UA) NEGATIVE (NEGATIVE) mg/dL Urine Ketones NEGATIVE (NEGATIVE) mg/dL Urine Occult Blood NEGATIVE (NEGATIVE) Urine Nitrite NEGATIVE (NEGATIVE) Urine Bilirubin NEGATIVE (NEGATIVE) Urine Urobilinogen 0.2 (<2.0) EU/dL Ur Leukocyte Esterase NEGATIVE (NEGATIVE) Cbc: nl Cmp. nl Trop: neg UA: nl - Radiology Interpretation Free Text/Narrative:: Cxr: no acute infiltrate - Re-Assessments/Exams Free Text/Narrative Re-Assessment/Exam: 09/30/19 12:04 Imp: palpitations -cut down on drinking; advised that alcohol can cause or worsen palpitations -PMD within 5 days -ret to ED for new, changing, worsening sxs Departure - Departure Time of Disposition: 12:04 Disposition: Home, Self-Care 01 Condition: Good Clinical Impression: Palpitations Instructions: Palpitations, [id number] Referrals: [facility]] [facility] [Ordering Only Provider] - PCP,None [Primary Care Provider] - 1 Day ([facility] - Internal Medicine [address] [place] [id number] ) Forms: ED Department Discharge Additional Instructions: Please cut down on your drinking Contact the internal medicine clinic within 24 hours and take the next available appointment for re-exam. Return to the emergency department in case: Fainting or feeling faint Sweating Seizures Trouble breathing Other new, changing, or worsening symptoms The following information is given to patients seen in the emergency department who are being discharged to home. This information is to outline your options for follow-up care. We provide all patients seen in our emergency department with a follow-up referral. The need for follow-up, as well as the timing and circumstances, are variable depending upon the specifics of your emergency department visit. If you don't have a primary care physician on staff, we will provide you with a referral. We always advise you to contact your personal physician following an emergency department visit to inform them of the circumstance of the visit and for follow-up with them and/or the need for any referrals to a consulting specialist. The emergency department will also refer you to a specialist when appropriate. This referral assures that you have the opportunity for follow-up care with a specialist. All of these measure are taken in an effort to provide you with optimal care, which includes your follow-up. Under all circumstances we always encourage you to contact your private physician who remains a resource for coordinating your care. When calling for follow-up care, please make the office aware that this follow-up is from your recent emergency room visit. If for any reason you are refused follow-up, please contact the [facility] Emergency Department at and asked to speak to the emergency department charge nurse. Sepsis Event Note - Evaluation Sepsis Screening Result: No Definite Risk - Focused Exam Vital Signs: Vital Signs Pulse Resp BP Pulse Ox 09/30/19 11:38 88 18 107/69 99 Date Exam was Performed: 09/30/19 Time Exam was Performed: 22:51 - My Orders Last 24 Hours: My Active Orders 09/30/19 10:34 EKG 12 Lead [EKG Documentation Completion] [RC] STAT 09/30/19 12:07 Ready for Discharge [RC] PER UNIT ROUTINE - Assessment/Plan Last 24 Hours: My Active Orders 09/30/19 10:34 EKG 12 Lead [EKG Documentation Completion] [RC] STAT 09/30/19 12:07 Ready for Discharge [RC] PER UNIT ROUTINE
[2019-09-30 11:39] VITALS: BP 107/69; PULSE 88
--- NOTE | 2019-09-30 11:42 | CR ---
Chest: Portable view of the chest was obtained. Comparison: Prior chest x-ray of 06/30/19. Heart size and mediastinum are normal. Lungs are clear. Old right distal clavicle fracture is noted. Mild scoliosis is noted. Impression: 1. Findings believed to be incidental as noted above. 2. Nothing acute is identified on portable chest x-ray. Diagnostic code #2 This report was dictated in [place] Standard Time
== END 2019-09-30 12:20 | disposition home or self-care (01) ==
LOC: MW.ED 10:14
DX: R00.2 Palpitations (principal); F17.210 Nicotine dependence, cigarettes, uncomplicated
CPT/HCPCS: 36415; 71045; 71045-26; 80053; 81003; 84484; 85025; 93005; 99283; 99285-25

== ENCOUNTER 2021-08-02 23:58 | Emergency (ER) | payer OTHER ==
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
[2021-08-03 00:08] VITALS: BP 146/85; PULSE 103
== END 2021-08-03 00:17 ==
LOC: MW.ED 23:58
DX: S00.81XA Abrasion of other part of head, initial encounter (principal); Z02.89 Encounter for other administrative examinations; Y09 Assault by unspecified means
CPT/HCPCS: 99284

== ENCOUNTER 2023-07-01 04:26 | Emergency (ER) | payer SELFPAY ==
[2023-07-01 04:35] VITALS: BP 96/54; PULSE 121
[2023-07-01] MEDS ORDERED: Ibuprofen 800 MG Tab PO ONE (04:47)
[2023-07-01 05:26] LABS: CORONAVIRUS COVID-19 NAA POSITIVE (NEGATIVE); INFLUENZA A NAA NEGATIVE (NEGATIVE); INFLUENZA B NAA NEGATIVE (NEGATIVE); RESPIRATORY SYNCYTIAL VIR NAA NEGATIVE (NEGATIVE)
== END 2023-07-01 04:57 | disposition left against medical advice (07) ==
LOC: MW.ED 04:26
DX: U07.1 COVID-19 (principal)
CPT/HCPCS: 0241U; 87651; 99283